=== PATIENT | male | born 1975 | race Caucasian/White ===

== ENCOUNTER 2024-01-01 18:32 | Emergency (ER) | payer BC ==
[2024-01-01] MEDS: Rocuronium 100 MG/10 ML MDV IVPUSH ONE (18:32)
[2024-01-01] MEDS: Sodium Chloride 0.9% 1,000 ML IV STA ×2 (18:44→19:42)
[2024-01-01] MEDS: fentaNYL 100 MCG/2 ML SDV IVPUSH ONE ×2 (18:50→19:09)
[2024-01-01] MEDS: propofoL 100 ML IV SCH ×2 (18:51→20:07)
[2024-01-01] MEDS: fentaNYL/Normal Saline 2,500 MCG in Premix Bag 1 BAG IV PRN (18:53)
[2024-01-01] MEDS: fentaNYL 100 MCG/2 ML SDV ONE (19:00)
[2024-01-01] MEDS: Lactated Ringers 1,000 ML IV STA ×2 (19:10→19:11)
[2024-01-01] MEDS ORDERED: Sodium Chloride 0.9% 10 ML Syringe FLUSH PRN (19:56)
[2024-01-01] MEDS ORDERED: Sodium Chloride 0.9% 2.5 ML Syringe FLUSH PRN (19:56)
[2024-01-01] MEDS: fentaNYL/Normal Saline 250 ML ONE (20:00)
[2024-01-01] MEDS: propofoL 100 ML ONE (20:00)
[2024-01-01] MEDS: Norepinephrine Bit/D5W Premix 250 ML IV SCH (20:10)
[2024-01-01] MEDS ORDERED: Norepinephrine Bit/D5W Premix 250 ML IV SCH (20:18)
[2024-01-01 20:25] LABS: MAGNESIUM 2.4 mg/dL (1.8-2.4)
[2024-01-01 20:43] LABS: HEMATOCRIT 58.8 % (42.0-52.0); HEMOGLOBIN 19.3 g/dL (14.0-18.0); MEAN CORPUSCULAR HEMOGLOBIN 28.9 pg (28.0-32.0); MEAN CORPUSCULAR HGB CONC 32.8 g/dL (32.0-36.0); MEAN PLATELET VOLUME 11.5 fL (9.4-12.4); NRBC ABSOLUTE 0.03 K/uL (0.00-0.02); NRBC PERCENT 0.1 /100WBC (0.0-0.2); PLATELET COUNT,PLT 327 K/uL (150-400); RED BLOOD CELL COUNT 6.68 M/uL (4.52-5.90)
[2024-01-01 20:44] LABS: WHITE BLOOD CELL COUNT,WBC 45.65 K/uL (3.9-11.3)
[2024-01-01 20:45] LABS: BAND ABSOLUTE MAN 5.02; BAND PERCENT MAN 11 %; SEG NEUTROPHILS PERCENT MAN 62 % (41-71)
[2024-01-01 20:46] LABS: BASOPHILS ABSOLUTE MAN 0.46 K/uL (0.00-0.20); BASOPHILS PERCENT MAN 1 % (0-1); EOSINOPHILS PERCENT MAN 0 % (0-6); LYMPHOCYTES ABSOLUTE MAN 9.59 K/uL (1.00-4.80); LYMPHOCYTES PERCENT MAN 21 % (24-44); MONOCYTES ABSOLUTE MAN 2.28 K/uL (0.00-0.80); MONOCYTES PERCENT MAN 5 % (0-8)
[2024-01-01] MEDS ORDERED: fentaNYL/Normal Saline 2,500 MCG in Premix Bag 1 BAG IV PRN (20:55)
[2024-01-01] MEDS: Norepinephrine Bit/D5W Premix 250 ML ONE (21:00)
[2024-01-01] MEDS: Albumin 25% 12.5 GM/50 ML Bag IV ONE (21:00)
[2024-01-01 21:26] LABS: A/G RATIO 0.6 (0.9-1.6); ALBUMIN 2.9 g/dL (3.4-5.0); BILIRUBIN TOTAL 1.8 mg/dL (0.2-1.0); CARBON DIOXIDE,CO2 22.8 mmol/L (21.0-32.0); CREATININE 1.8 mg/dL (0.8-1.3); EST CRCL DRUG DOSING (CG) 55.69 mL/min; INR 1.14 (0.86-1.11); PHOSPHORUS 6.2 mg/dL (2.6-4.7); PROTEIN TOTAL,TP 7.5 g/dL (6.4-8.2); PTT,PARTIAL THROMBOPLSTIN TIME 27.1 SEC (23.9-30.7)
[2024-01-01 21:28] LABS: POTASSIUM,K 4.2 mmol/L (3.5-5.1)
[2024-01-01] MEDS ORDERED: Midazolam HCl In 0.9 % NaCl/Pf 100 ML IV SCH (21:45)
== END 2024-01-01 22:48 ==
LOC: MW.ED 18:32
DX: T22.30XA Burn of third degree of shoulder and upper limb, except wrist and hand, unspecified site, initial encounter (principal); T24.312A Burn of third degree of left thigh, initial encounter; T24.311A Burn of third degree of right thigh, initial encounter; T24.322A Burn of third degree of left knee, initial encounter; T24.321A Burn of third degree of right knee, initial encounter; T31.7 Burns involving 70-79% of body surface
CPT/HCPCS: 31500; 36415; 51702; 71045; 80053; 82550; 83735; 83880; 84100; 85025; 85610; 85730; 96365; 96366; 96367; 96368; 96376; 99291; G0390; J2704; J3010; J7030; J7120; P9047; 99285; J3490

== ENCOUNTER 2024-01-01 23:58 | Emergency (ER) | payer BC ==
[2024-01-02] MEDS ORDERED: Albumin 5% 1,000 ML IV STA ×2 (00:45→00:52)
[2024-01-02] MEDS: ALBUMIN 5% IV STA (01:15)
[2024-01-02] MEDS: LACTATED RINGERS IV SCH (01:32)
[2024-01-02] MEDS: ALBUMIN 25% IV SCH (01:32)
[2024-01-02] MEDS: Ketamine 500 mg/10 ML MDV ONE (02:27)
[2024-01-02] MEDS: Rocuronium 100 MG/10 ML MDV IVPUSH ONE (02:29)
[2024-01-02] MEDS: Ketamine 500 mg/10 ML MDV IV ONE (02:30)
== END 2024-01-02 02:30 ==
LOC: MW.ED 23:58
DX: T31.66 Burns involving 60-69% of body surface with 60-69% third degree burns (principal)
CPT/HCPCS: 96365; 96366; 96375; 99284; J3490; J7120; P9045; P9047; 31500; 99285